=== PATIENT | female | born 1935 | race Caucasian/White ===

== ENCOUNTER → 2016-10-17 | Outpatient (CLI) | payer MEDICARE | END | disposition home or self-care (01) | LOC: PCVCIMAG 13:39 | PROVIDERS: ATTEND Internal Medicine Cardiovascular Disease | DX: I25.10 Atherosclerotic heart disease of native coronary artery without angina pectoris (principal); I35.0 Nonrheumatic aortic (valve) stenosis; I87.2 Venous insufficiency (chronic) (peripheral); I10 Essential (primary) hypertension; E78.00 Pure hypercholesterolemia, unspecified; I48.91 Unspecified atrial fibrillation | CPT/HCPCS: 93306; G0463 ==

== ENCOUNTER → 2017-05-25 | Outpatient (CLI) | payer MEDICARE | END | disposition home or self-care (01) | LOC: PCVCCLINIC 13:08 | PROVIDERS: ATTEND Internal Medicine Cardiovascular Disease | DX: I44.0 Atrioventricular block, first degree (principal); I25.10 Atherosclerotic heart disease of native coronary artery without angina pectoris; I48.91 Unspecified atrial fibrillation; I10 Essential (primary) hypertension; I35.0 Nonrheumatic aortic (valve) stenosis; I87.2 Venous insufficiency (chronic) (peripheral); E78.00 Pure hypercholesterolemia, unspecified; E11.9 Type 2 diabetes mellitus without complications; Z90.49 Acquired absence of other specified parts of digestive tract; Z79.899 Other long term (current) drug therapy; Z79.4 Long term (current) use of insulin; Z87.891 Personal history of nicotine dependence; Z88.0 Allergy status to penicillin; Z88.2 Allergy status to sulfonamides; Z88.1 Allergy status to other antibiotic agents | CPT/HCPCS: 93005; G0463 ==

== ENCOUNTER → 2017-07-13 | Outpatient (CLI) | payer MEDICARE | END | disposition home or self-care (01) | LOC: PCVCCLINIC 10:23 | PROVIDERS: ATTEND Internal Medicine Cardiovascular Disease | DX: I87.2 Venous insufficiency (chronic) (peripheral) (principal); I25.10 Atherosclerotic heart disease of native coronary artery without angina pectoris; I48.91 Unspecified atrial fibrillation; I10 Essential (primary) hypertension; E11.9 Type 2 diabetes mellitus without complications; E78.5 Hyperlipidemia, unspecified; I35.0 Nonrheumatic aortic (valve) stenosis; E05.90 Thyrotoxicosis, unspecified without thyrotoxic crisis or storm | CPT/HCPCS: 36415 ==

== ENCOUNTER → 2017-07-15 | Outpatient (CLI) | payer MEDICARE ==
--- NOTE | 2017-07-15 17:21 | PCVCIMAG ---
APPROVED REPORT Study performed: 07/15/2017 15:16:36 EXAM: Comprehensive 2D, Doppler, and color-flow Echocardiogram Patient Location: Echo lab Status: routine BSA: 1.84 HR: 62 bpmBP: 100/58 mmHg Rhythm: NSR Other Information Study Quality: Good Indications Aortic Valve Disease Dyspnea Hypertension/HDD 2D Dimensions LVEF(%): 49.39 (>50%) IVSd: 12.70 (7-11mm)LVOT Diam: 18.97 (18-24mm) LVDd: 55.70 mm PWd: 13.96 (7-11mm)Ascending Ao: 23.03 (22-36mm) LVDs: 41.60 (25-40mm) Left Atrium: 43.68 (27-40mm) Aortic Root: 24.63 mm LV Single Plane 4CH: 50.31 % LV Single Plane 2CH: 59.49 %Reilly's LVEF: 54.90 % Biplane EF: 57.4 % Volumes Left Atrial Volume (Systole) Single Plane 4CH: 79.74 mLSingle Plane 2CH: 105.68 mL LA ESV Index: 61.00 mL/m2 Aortic Valve AoV Peak Celso.: 4.55 m/s AO Peak Gr.: 82.84 mmHgLVOT Max P.10 mmHg AO Mean Gr.: 49.38 mmHgLVOT Mean P.99 mmHg AO V2 Mean: 3.37 m/sLVOT Max V: 1.01 m/s AO V2 VTI: 113.43 cm FLAQUITO (VTI): 0.55 [id number] V1 VTI: 22.23 cm FLAQUITO Vmax: 0.63 cm2 Mitral Valve E/A Ratio: 1.0 MV E Max Celso.: 1.59 m/s MV A Celso.: 1.63 m/s Pulmonary Valve PV Peak Gr.: 2.67 mmHg Tricuspid Valve TR Peak Celso.: 3.55 m/s TR Peak Gr.: 50.39 mmHg Left Ventricle The left ventricle is normal size. There is normal LV segmental wall motion. There is normal left ventricular wall thickness. Left ventricular systolic function is normal. The left ventricular ejection fraction is within the normal range. LVEF is >55%. This study is not technically sufficient to allow evaluation of the LV diastolic function. Right Ventricle The right ventricle is normal size. The right ventricular systolic function is normal. Atria Left atrium is severely dilated. The right atrium size is normal. Aortic Valve Aortic valve is severely calcified. No aortic regurgitation is present. Severe Aortic Stenosis. Peak gradient is 83mmhg. Mean gradient is 50mmhg. Aortic Valve Area is 0.6 cm2. Mitral Valve The mitral valve is normal in structure. Severe mitral regurgitation. No evidence of mitral valve stenosis. Tricuspid Valve The tricuspid valve is normal in structure. Mild tricuspid regurgitation. Pulmonary artery pressure is 57mmhg. Pulmonic Valve The pulmonary valve is normal in structure. Mild pulmonic regurgitation. Great Vessels The aortic root is normal in size. IVC is normal in size and collapses with >50% inspiration Pericardium Trace pericardial effusion is noted. Pleural effusion is noted. <Conclusion> The left ventricle is normal size. LVEF is >55%. This study is not technically sufficient to allow evaluation of the LV diastolic function. The right ventricle is normal size. Left atrium is severely dilated. The right atrium size is normal. Aortic valve is severely calcified. Severe Aortic Stenosis. Peak gradient is 83mmhg. Mean gradient is 50mmhg. Aortic Valve Area is 0.6 cm2. Severe mitral regurgitation. Mild tricuspid regurgitation. Pulmonary artery pressure is 57mmhg. Trace pericardial effusion is noted.
== END | disposition home or self-care (01) ==
LOC: PCVCIMAG 14:06
PROVIDERS: ATTEND Internal Medicine Cardiovascular Disease
DX: I08.3 Combined rheumatic disorders of mitral, aortic and tricuspid valves (principal); I12.9 Hypertensive chronic kidney disease with stage 1 through stage 4 chronic kidney disease, or unspecified chronic kidney disease; E11.22 Type 2 diabetes mellitus with diabetic chronic kidney disease; N18.4 Chronic kidney disease, stage 4 (severe); I25.10 Atherosclerotic heart disease of native coronary artery without angina pectoris; I87.2 Venous insufficiency (chronic) (peripheral); E78.00 Pure hypercholesterolemia, unspecified; E87.6 Hypokalemia; R94.31 Abnormal electrocardiogram [ECG] [EKG]; Z79.4 Long term (current) use of insulin; Z87.891 Personal history of nicotine dependence; Z79.899 Other long term (current) drug therapy
CPT/HCPCS: 93005; 93306; G0463